=== PATIENT | female | born 1995 | race Two or more races ===

== ENCOUNTER → 2019-03-26 | Emergency (ER) | payer OTHER ==
[~2019-03-26] VITALS: Ht 154.9 cm; Wt 66.2 kg
[~2019-03-26] MED LIST: OSEL75CA PO; TESSALON PERLE100 M1 PO
== END | disposition home or self-care (01) ==
LOC: ER 01:47
DX: J11.1 Influenza due to unidentified influenza virus with other respiratory manifestations (principal)